=== PATIENT | female | born 2000 | race African-American/Black ===

== ENCOUNTER 2019-04-16 19:20 | Emergency (ER) | payer MEDICAID ==
[~2019-04-16] VITALS: Ht 172.7 cm; Wt 63.5 kg
--- NOTE | 2019-04-16 19:40 | NUR ---
ED Nurse Note: Pt arriven ED from home, c/o left abdominal pain 7/10 for 3 days. Pt states that she is having 13 weeks . Pt is A/O X4, Vital signs stable at this time, waiting for orders.
--- NOTE | 2019-04-16 20:05 | NUR ---
ED Nurse Note: Blood and urine sample collected and sent to Lab. Pt's .
[2019-04-16 20:12] LABS: BASOPHILS % (AUTO) 1.2 % (0.0-2.0); EOSINOPHILS % (AUTO) 1.5 % (0.0-3.0); HEMATOCRIT 30.8 % (37.0-47.0); HEMOGLOBIN 10.6 G/DL (12.0-16.0); LYMPHOCYTES % (AUTO) 24.7 % (20.0-45.0); MEAN CORPUSCULAR VOLUME 81 FL (80-99); MONOCYTES % (AUTO) 6.9 % (1.0-10.0); NEUTROPHILS % (AUTO) 65.7 % (45.0-75.0); PLATELET COUNT 206 K/UL (150-450); RED BLOOD COUNT 3.82 M/UL (4.20-5.40); RED CELL DISTRIBUTION WIDTH 12.7 % (11.6-14.8); WHITE BLOOD COUNT 6.7 K/UL (4.8-10.8)
[2019-04-16 20:13] LABS: APPEARANCE,URINE CLEAR; BILIRUBIN, URINE NEGATIVE (NEGATIVE); GLUCOSE, URINE (UA) NEGATIVE (NEGATIVE); KETONES,URINE NEGATIVE (NEGATIVE); LEUKOCYTE ESTERASE ,URINE 1+ (NEGATIVE); NITRITE,URINE NEGATIVE (NEGATIVE); PH,URINE 5 (4.5-8.0); PROTEIN,URINE NEGATIVE (NEGATIVE); UROBILINOGEN,URINE NORMAL MG/DL (0.0-1.0)
[2019-04-16 20:16] LABS: COLOR,URINE YELLOW
[2019-04-16 20:32] LABS: ANION GAP 11 mmol/L (5-15); BLOOD UREA NITROGEN 11 mg/dL (7-18); CALCIUM 9.4 MG/DL (8.5-10.1); CARBON DIOXIDE 25 MMOL/L (21-32); CHLORIDE 107 MMOL/L (98-107); CREATININE 0.8 MG/DL (0.55-1.30); POTASSIUM 3.7 MMOL/L (3.5-5.1); SODIUM 143 MMOL/L (136-145)
[2019-04-16 20:36] LABS: ALANINE AMINOTRANSFERASE 17 U/L (12-78); ALBUMIN 3.5 G/DL (3.4-5.0); ALBUMIN/GLOBULIN RATIO 0.9 (1.0-2.7); ALKALINE PHOSPHATASE 32 U/L (46-116); ASPARTATE AMINO TRANSFERASE 10 U/L (15-37); BILIRUBIN,TOTAL 0.2 MG/DL (0.2-1.0)
--- NOTE | 2019-04-16 20:38 | Emergency Room Report ---
History of Present Illness General Chief Complaint: Complications Source: Patient (Abelino Nevarez) Present Illness HPI 18-year-old female G2, here complaining of 2 days of left upper quadrant pain and 2 bouts of nonbloody diarrhea. Patient is rating her pain 5 out of 10 , intermittent, worse when she is supine, denying pain radiation. Has not taken any medication for pain. She further denies any lower abdominal pain, cramping, vaginal discharge, bleeding or spotting. Denies dysuria and hematuria. Patient reports that her pain started 2 days ago as she was sitting at home and does not recall any intake of new food. Denies any new medication or recent travel. Denies fever and chills. Patient has not seen an PANTOGRAPH MACHINE OPERATOR yet however has been seeing a primary doctor and taking vitamins. Patient is 13 weeks and to visit her PANTOGRAPH MACHINE OPERATOR for the first time next week. Denies chest pain, shortness of breath, palpitation, and all other associated symptoms. Denies dizziness, headache, syncope. However reports that today after 5 out of 10 pain in the left upper quadrant lightheaded for a few moments. (Abelino Nevarez) Allergies: Coded Allergies: No Known Allergies (Unverified , 04/16/19) Patient History Past Medical History: see triage record Past Surgical History: unable to obtain Pertinent Family History: none Now: Yes Immunizations: UTD Reviewed Nursing Documentation: PMH: Agreed; PSxH: Agreed (Abelino Nevarez) Nursing Documentation-PMH Past Medical History: No History, Except For Hx Asthma: Yes (Abelino Nevarez) Review of Systems All Other Systems: negative except mentioned in HPI (Abelino Nevarez) Physical Exam Vital Signs Date Time Temp Pulse Resp B/P (MAP) Pulse Ox O2 Delivery O2 Flow Rate FiO2 04/16/19 19:28 98.8 96 16 108/71 (83) 99 Room Air Sp02 EP Interpretation: reviewed, normal General Appearance: normal inspection, well appearing, no apparent distress, alert, GCS 15 Head: normocephalic, atraumatic Eyes: bilateral eye normal inspection, bilateral eye PERRL ENT: normal ENT inspection, normal pharynx Neck: normal inspection, full range of motion, supple Respiratory: normal inspection, chest non-tender, normal breath sounds, no rhonchi, no retraction, no wheezing Gastrointestinal: normal inspection, normal bowel sounds, non tender, soft, no organomegaly, no bruit, no guarding Rectal: deferred Genitourinary: no CVA tenderness Neurologic: normal inspection, alert, oriented x3, responsive Psychiatric: normal inspection, judgement/insight normal Skin: normal inspection, no rash, warm/dry, palpation normal, normal turgor Lymphatic: normal inspection, no adenopathy (Abelino Nevarez) Medical Decision Making PA Attestation All my diagnosis and treatment plans were reviewed ad discussed with my supervising physician Dr. Patrick (Abelino Nevarez) Diagnostic Impression: Primary Impression: Gastritis Additional Impression: Iron deficiency anemia ER Course 18-year-old female G2, here complaining of 2 days of left upper quadrant pain and 2 bouts of nonbloody diarrhea. Patient is rating her pain 5 out of 10 , intermittent, worse when she is supine, denying pain radiation. Has not taken any medication for pain. She further denies any lower abdominal pain, cramping, vaginal discharge, bleeding or spotting. Denies dysuria and hematuria. Patient reports that her pain started 2 days ago as she was sitting at home and does not recall any intake of new food. Denies any new medication or recent travel. Denies fever and chills. Patient has not seen an PANTOGRAPH MACHINE OPERATOR yet however has been seeing a primary doctor and taking vitamins. Patient is 13 weeks and to visit her PANTOGRAPH MACHINE OPERATOR for the first time next week. Denies chest pain, shortness of breath, palpitation, and all other associated symptoms. Denies dizziness, headache, syncope. However reports that today after 5 out of 10 pain in the left upper quadrant lightheaded for a few moments. Ddx considered but are not limited to: appendicitis, cholycisitis, gastritis, gasthroentritis, UTI, pylonephritis, SBO, diverticulitis, influenza with GI manifestation, UT, complication with Vital signs: are WNL, pt. is afebrile H&PE are most consistent with: gastritis ORDERS: OB ultrasound, abdominal ultrasound, CBC, CMP, UA, hCG quantitative ED INTERVENTIONS: None required at this time. DISCHARGE: At this time pt. is stable for d/c to home. Will provide printed patient care instructions, and any necessary prescriptions. Care plan and follow up instructions have been discussed with the patient prior to discharge. (Abelino Nevarez) ER Course Pelvic ultrasound showed intrauterine with no free fluid heart rate was 160 (approximate 13 weeks. There was some gallbladder polyps noted on abdominal ultrasound. Patient was advised to follow-up with outpatient surgery appointment after her . She is advised to return if she had any worsening condition or other concerns. She was given prescription for oral iron pills. (Paddy Patrick MD) Last Vital Signs Date Time Temp Pulse Resp B/P (MAP) Pulse Ox O2 Delivery O2 Flow Rate FiO2 04/16/19 19:28 98.8 96 16 108/71 (83) 99 Room Air (Abelino Nevarez) Status: improved (Paddy Patrick MD) Disposition: HOME, SELF-CARE Condition: Stable Scripts Ferrous Sulfate* (FERROUS SULFATE*) 325 Mg Tablet 325 MG ORAL DAILY, #30 TAB 0 Refills Prov: Paddy Patrick MD 04/16/19 Referrals: NOT CHOSEN IPA/,REFERRING (PCP) Patient Instructions: Gastritis, Adult, [id number], Iron Deficiency Anemia, Adult, [id number] Additional Instructions: Follow-up with your PANTOGRAPH MACHINE OPERATOR for further evaluation take your vitamins as well as iron pills Abelino Nevarez Apr 16, 2019 20:38 Paddy Patrick MD Apr 16, 2019 21:57
--- NOTE | 2019-04-16 20:45 | NUR ---
ED Nurse Note: waiting for U/S.
[2019-04-16] MEDS ORDERED: FERROUS SULFAT325 MG ORAL (21:53)
[2019-04-16 21:55] VITALS: BP 109/73
--- NOTE | 2019-04-16 22:03 | NUR ---
ER DISCHARGE NOTE: Patient is cleared to be discharged per Dr. Patrick. Pt is aox4 on room air with stable vital signs. Pt was given dc and prescription instructions and pt was able to verbalize understanding. Pt's ID band and iv site removed without complications. Pt is able to ambulate with steady gait and took all belongings.
--- NOTE | 2019-04-16 22:09 | Diagnostic Imaging Report ---
EXAM: US First Trimester, Transabdominal CLINICAL HISTORY: PAIN TECHNIQUE: Real-time transabdominal obstetrical ultrasound of the maternal pelvis and a first trimester with image documentation. COMPARISON: No relevant prior studies available. FINDINGS: Gestation: There is a single intrauterine gestation with a heart rate of 160 bpm and an estimated gestational age of 12 weeks and 2 days. The crown-rump length measures 7.0 cm. The mean sac diameter measures 5. 8 cm. Uterus/cervix: The cervix measures 5.4 cm. No myometrial mass. Ovaries: The ovaries are grossly unremarkable. No mass. Free fluid: No evidence for free fluid. IMPRESSION: Intrauterine with an estimated gestational age of 12 weeks and 2 days.
--- NOTE | 2019-04-16 22:22 | Diagnostic Imaging Report ---
EXAM: US Abdomen Complete CLINICAL HISTORY: PAIN TECHNIQUE: Real-time ultrasound of the abdomen (complete) with image documentation. COMPARISON: No relevant prior studies available. FINDINGS: Liver: The visualized portions of the liver are unremarkable. No intrahepatic bile duct dilation. Gallbladder: There are at least 2 small echogenic non-shadowing structures within the gallbladder measuring up to 2 mm which may be related to small gallbladder polyps. No definite shadowing gallstones are appreciated. No evidence for gallbladder wall thickening or pericholecystic fluid. Common bile duct: The common biliary duct measures 2 mm. No stones. No dilation. Pancreas: The visualized portions of the pancreas are unremarkable. Kidneys: The visualized portions of the right kidney are unremarkable. The right kidney measures 11.7 cm in length. The visualized portions of the left kidney are unremarkable. The left kidney measures 11.1 cm in length. Spleen: The visualized portions of the spleen are unremarkable. Aorta: The visualized portions of the aorta are unremarkable. Inferior vena cava: Unremarkable. IMPRESSION: At least 2 small echogenic structures within the gallbladder which may be related to small polyps.
== END 2019-04-16 21:55 | disposition home or self-care (01) ==
LOC: EMR 19:42
DX: O99.611 Diseases of the digestive system complicating pregnancy, first trimester (principal); K29.70 Gastritis, unspecified, without bleeding; O99.511 Diseases of the respiratory system complicating pregnancy, first trimester; Z3A.12 12 weeks gestation of pregnancy; O99.011 Anemia complicating pregnancy, first trimester
CPT/HCPCS: 36415; 76700; 76801; 80053; 81001; 84702; 85025; 86850; 86900; 86901; 99284